=== PATIENT | male | born 1940 | race African-American/Black ===

== ENCOUNTER 2017-06-04 11:33 | Emergency (ER) | payer OTHER ==
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
[2017-06-04] MEDS ORDERED: CYCL5TAB PO (14:13)
[2017-06-04 14:50] VITALS: BP 140/67
== END 2017-06-04 14:52 | disposition home or self-care (01) ==
LOC: ER 11:33
DX: M54.5 Low back pain (principal); M25.551 Pain in right hip; M54.2 Cervicalgia; M25.511 Pain in right shoulder; M54.6 Pain in thoracic spine; V43.62XA Car passenger injured in collision with other type car in traffic accident, initial encounter; Y93.89 Activity, other specified; Y92.89 Other specified places as the place of occurrence of the external cause; Y99.8 Other external cause status
CPT/HCPCS: 70450; 72072; 72100; 72125; 73030; 73502; 73552; 99284-25; 99285-25